=== PATIENT | female | born 1950 | race Two or more races ===

== ENCOUNTER 2016-12-25 14:31 | Emergency (ER) | payer OTHER ==
[2016-12-25 14:42] VITALS: TEMP 99.1; BMI 33.2
--- NOTE | 2016-12-25 14:53 | PDOC ---
[id number] I have performed the following: I have examined & evaluated the patient, The case was reviewed & discussed with the resident, I agree w/resident's findings & plan, Exceptions are as noted - HPI HPI: 66 yo F history HTN, arthritis, sent by dentist after she was found to have elevated BP. She describes sensation of "lumps" in her head. No TREJO, cp, SOB. No recent illness. She is compliant with her medication- takes two blood pressure medications every evening. She sees her PMD every 3 months, has an appointment scheduled later this month. - Physicial Exam PE: GENERAL: Awake, alert, and fully oriented, in no acute distress HEAD: No signs of trauma EYES: PERRLA, EOMI, sclera anicteric, conjunctiva clear ENT: Auricles normal inspection, hearing grossly normal, nares patent, oropharynx clear without exudates. Moist mucosa NECK: Normal ROM, supple, no lymphadenopathy, JVD, or masses LUNGS: Breath sounds equal, clear to auscultation bilaterally. No wheezes, and no crackles HEART: Regular rate and rhythm, normal S1 and S2, no murmurs, rubs or gallops ABDOMEN: Soft, nontender, normoactive bowel sounds. No guarding, no rebound. No masses EXTREMITIES: Normal range of motion, no edema. No clubbing or cyanosis. No cords, erythema, or tenderness NEUROLOGICAL: Cranial nerves II through XII grossly intact. Normal speech, normal gait SKIN: Warm, Dry, normal turgor, no rashes or lesions noted. - Medical Decision Making Patient is well-appearing, neurologically intact. Asymptomatic HTN. No signs of end-organ damage. EKG no acute findings. Awaiting labs. If wnl, will DC with outpatient PMD follow-up. Will add a calcium channel nirmal to her regimen.
--- NOTE | 2016-12-25 16:09 | PDOC ---
History of Present Illness - General Chief Complaint: Blood Pressure Problem Stated Complaint: HTN CRISIS Time Seen by Provider: 12/25/16 14:48 History Source: Patient Exam Limitations: Language Barrier - History of Present Illness Initial Comments: 12/25/16 16:01 The pt is 66 year old female with a PMH of HTN, arthritis, who was referred to the hospital from the dentist office where she was found to have elevated systolic BP around 220s/75. She is complaining of feeling "Lumps" in her head, different locations but denies headache, vision problems. She had POLICE GUARD laparoscopic surgery in September. Since then she has been complaining of dyspnea with exertion. She is also complaining of cough and urgency, incontinence. The pt denies dysuria, fever, chills. Denies chest pain, palpitations, dizziness. Timing/Duration: 4-6 hours Severity: moderate Past History - Past Medical History Allergies/Adverse Reactions: Allergies Allergy/AdvReac Type Severity Reaction Status Date / Time No Known Allergies Allergy Verified 12/25/16 14:40 Home Medications: Ambulatory Orders Atenolol [Tenormin -] 100 mg PO DAILY 12/07/13 Amlodipine Besylate [Norvasc -] 5 mg PO DAILY #30 tablet 12/25/16 Lisinopril [Zestril] 20 mg PO DAILY 12/25/16 Meloxicam [Mobic] 15 mg PO DAILY 12/25/16 Trazodone HCl [Desyrel -] 50 mg PO HS 12/25/16 Diabetes: Yes GI Disorders: Yes (ACID REFLUX) HTN: Yes - Surgical History Abdominal Surgery: Yes Appendectomy: Yes - Psycho/Social/Smoking Cessation Hx Suicidal Ideation: No Smoking History: Never smoked Have you smoked in the past 12 months: No Information on smoking cessation initiated: No Hx Alcohol Use: No Drug/Substance Use Hx: No Review of Systems - Review of Systems Able to Perform ROS?: Yes Comments:: 12/25/16 16:39 REVIEW OF SYSTEMS CONSTITUTIONAL: Absent: fever, chills, diaphoresis, generalized weakness, HEENT: Absent: rhinorrhea, nasal congestion, throat pain, throat swelling, difficulty swallowing, mouth swelling, ear pain, eye pain, visual changes CARDIOVASCULAR: Absent: chest pain, syncope, palpitations, irregular heart rate, lightheadedness , peripheral edema RESPIRATORY: cough Absent: shortness of breath, dyspnea with exertion, orthopnea, wheezing, stridor, hemoptysis GASTROINTESTINAL: Absent: abdominal pain, abdominal distension, nausea, vomiting, diarrhea, constipation, melena, hematochezia GENITOURINARY: Absent: dysuria, frequency, urgency, hesitancy, hematuria, flank pain, genital pain MUSCULOSKELETAL: arthralgia in knee b/l Absent: myalgia, arthralgia, joint swelling, back pain, neck pain SKIN: Absent: rash, itching, pallor NEUROLOGIC: bladder incontinence Absent: headache, focal weakness or paresthesias, dizziness, unsteady gait, seizure, mental status changes, Is the patient limited Ukrainian proficient: Yes *Physical Exam - Vital Signs Last Vital Signs Temp Pulse Resp BP Pulse Ox 99.1 F 67 20 227/76 98 12/25/16 14:40 12/25/16 14:40 12/25/16 14:40 12/25/16 14:40 12/25/16 14:40 - Physical Exam Comments: 12/25/16 16:23 GENERAL: The patient is awake, alert, and fully oriented, in no acute distress. HEAD: Normal with no signs of trauma. EYES: PERRL, extraocular movements intact, sclera anicteric, conjunctiva clear. No ptosis. ENT: Ears normal, nares patent, oropharynx clear without exudates, moist mucous membranes. NECK: Trachea midline, full range of motion, supple. LUNGS: Breath sounds equal, clear to auscultation bilaterally, no wheezes, no crackles, no accessory muscle use. HEART: Regular rate and rhythm, S1, S2 without murmur, rub or gallop. ABDOMEN: Obese, soft, nontender, nondistended, normoactive bowel sounds, no guarding, no rebound. EXTREMITIES: 2+ pulses, warm, well-perfused, no edema. NEUROLOGICAL: Normal speech, gait not observed. PSYCH: Normal mood, normal affect. SKIN: Warm, dry, normal turgor, no rashes or lesions noted ED Treatment Course - LABORATORY CBC & Chemistry Diagram: 12/25/16 15:30 12/25/16 15:30 Medical Decision Making - Medical Decision Making 12/25/16 16:41 THe pt has elevated systolic BP. She takes her medications everyday. She has been recently under a lot of stress. We ordered CMP, CBC, UA which are pending. We did EKG-no acute changes, NSR. We tried to contact PCP Dr. Anna Lorenzana [phone] and [phone]. Norvasc 5 mg ONCE was ordered. 12/25/16 18:02 The pt is ready for discharge. BP went down to 189/75. She was told to take Norvasc 5 mg daily. Her labs were nl, troonin negative. *DC/Admit/Observation/Transfer Diagnosis at time of Disposition: Hypertension Qualifiers: Hypertension type: essential hypertension Qualified Code(s): I10 - Essential ( primary) hypertension - Discharge Dispostion Disposition: HOME Condition at time of disposition: Stable Admit: No - Prescriptions Prescriptions: Amlodipine Besylate [Norvasc -] 5 mg PO DAILY #30 tablet - Patient Instructions Printed Discharge Instructions: DI for High Blood Pressure, How to Monitor Your Blood Pressure at Home Additional Instructions: Please take your blood pressure medication Norvasc 5 mg everyday. Continue taking all your medications as you were taking before coming to the hospital. Call and let him know that you were in the hospital with elevated blood pressure. Please see him on Wednesday. Your new medication is waiting for you in your pharmacy [facility]. Please monitor blood pressure at home. If your symptoms worsen come back to Emergency Room as soon as possible.
[2016-12-25] MEDS ORDERED: amLODIPine BESYLATE 5 MG TABLET (FP) PO ONE (16:32)
[2016-12-25 16:42] LABS: BASOPHIL 0.6 % (0-2.0); EOSINOPHIL 1.2 % (0-4.5); MCH 29.6 pg (25.7-33.7); MEAN PLT VOLUME 8.7 fl (7.5-11.1); NEUTROPHILS 63.9 % (42.8-82.8); PLATELET COUNT 295 K/MM3 (134-434); RDW 13.2 % (11.6-15.6); WHITE BLOOD COUNT 8.2 K/mm3 (4.0-10.0)
[2016-12-25] MEDS ORDERED: amLODIPine BESYLATE 5 MG TABLET (FP) ONE (16:44)
[2016-12-25 17:21] LABS: TROPONIN I < 0.02 ng/ml (0.00-0.05)
[2016-12-25 17:25] LABS: ALBUMIN 3.6 g/dl (3.4-5.0); ANION GAP 11 (8-16); CALCIUM 8.8 mg/dL (8.5-10.1); CO2 25 mmol/L (21-32); CREATININE 0.7 mg/dL (0.55-1.02); GLUCOSE,RANDOM 103 mg/dL (74-106); SGOT/AST 31 U/L (15-37); SGPT/ALT 37 U/L (12-78)
[2016-12-25 17:27] LABS: ALK PHOS 113 U/L (45-117); BILIRUBIN,TOTAL 0.3 mg/dL (0.2-1.0); TOT PROT 7.7 g/dl (6.4-8.2)
[2016-12-25] MEDS ORDERED: amLODIPine BESYLATE 2.5 MG TABLET (FP) PO ONE (18:32)
[2016-12-25] MEDS ORDERED: LISINOPRIL 20 MG TABLET (FP) PO ONE (18:34)
[2016-12-25] MEDS ORDERED: ATENOLOL 50 MG TABLET (FP) PO ONE (18:34)
[2016-12-25] MEDS ORDERED: LISINOPRIL 20 MG TABLET (FP) ONE (18:35)
[2016-12-25] MEDS ORDERED: ATENOLOL 25 MG TABLET (FP) ONE (18:35)
[2016-12-25] MEDS ORDERED: CEFTRIAXONE 50 ML ONE (18:46)
[2016-12-25] MEDS ORDERED: PHENAZOPYRIDINE HCL 100 MG TABLET (FP) ONE (18:46)
[2016-12-25 19:13] VITALS: BP 181/90; PULSE 78
--- NOTE | 2016-12-26 14:47 | EKG ---
Test Reason : Blood Pressure : / mmHG Vent. Rate : 066 BPM Atrial Rate : 066 BPM P-R Int : 158 ms QRS Dur : 086 ms QT Int : 416 ms P-R-T Axes : 037 -09 037 degrees QTc Int : 436 ms NORMAL SINUS RHYTHM MODERATE VOLTAGE CRITERIA FOR LVH, MAY BE NORMAL VARIANT WHEN COMPARED WITH ECG OF 07-DEC-2013 21:53, NO SIGNIFICANT CHANGE WAS FOUND Confirmed by ERYN HURD MD ([id number]) on 12/26/2016 2:47:40 PM Referred By: Confirmed By:ERYN HURD MD
== END 2016-12-25 19:13 | disposition home or self-care (01) ==
LOC: JER 14:31
DX: I10 Essential (primary) hypertension (principal); E11.9 Type 2 diabetes mellitus without complications; K21.9 Gastro-esophageal reflux disease without esophagitis; M12.9 Arthropathy, unspecified
CPT/HCPCS: 36415; 80053; 82550; 84484; 85025; 93005; 93010; 99284-25

== ENCOUNTER 2017-04-09 12:13 | Day surgery (SDC) | payer OTHER ==
[2017-04-08 10:57] VITALS: BMI 33.2
[2017-04-09] MEDS ORDERED: ONABOTULINUMTOXINA 200 UNIT/VIAL VIAL IM ONE ×2 (13:30→16:06)
[2017-04-09] MEDS ORDERED: MIDAZOLAM HCL 2 MG/2 ML SINGLE DOSE VIAL ONE (15:15)
--- NOTE | 2017-04-09 15:18 | OP ---
Operative Note - Note: Operative Date: 04/09/17 Pre-Operative Diagnosis: overactive bladder Operation: cysto botox injection in bladder Findings: small caps. bladder Post-Operative Diagnosis: Same as Pre-op Surgeon: Casimiro Stanton Anesthesia: General Specimens Removed: urine Estimated Blood Loss (mls): 0 Drains & Tubes with Location: none Drains, Volume Out (mls): 0 Blood Volume Replaced (mls): 0 Fluid Volume Replaced (mls): 0 Operative Report Dictated: Yes
--- NOTE | 2017-04-09 15:38 | HP ---
DATE OF ADMISSION: 04/09/2017 HISTORY OF PRESENT ILLNESS: This is a 66-year-old female with a history of overactive bladder, including urgency, frequency, hesitancy, stress urinary incontinence and enuresis. The patient is on multiple medications without any relief. She has tried Kegel exercises but again with no relief. A urodynamic evaluation revealed an overactive bladder. PAST MEDICAL HISTORY: The patient has a history of diet-controlled diabetes. She is also hypertensive. She has a history of rheumatoid arthritis. The patient is a G5, P5 and is post-menopausal. PAST SURGICAL HISTORY: She has undergone bilateral tubal ligation as well as an appendectomy. SOCIAL HISTORY: She denies ethanol or tobacco use. ALLERGIES: She denies any allergies. PHYSICAL EXAMINATION: General: She is a well-developed adult female in no apparent distress. Abdomen: Globose and soft. No CVA tenderness. No suprapubic tenderness is noted. Extremities: Full range of motion with no cyanosis, clubbing or edema. DIAGNOSTIC DATA: Her Tyrell test is positive for stress urinary incontinence. MEDICATIONS: She is presently on Tenormin 100 mg daily, Zestril 10 mg daily, Mobic 15 mg daily, trazodone 50 mg nightly, aspirin, calcium and hydrochlorothiazide. PLAN: She is to undergo a cystourethroscopy with Botox injections. The procedure was explained in detail to the patient and she agrees. GAURAV MANRIQUEZ M.D. [id number]
[2017-04-09] MEDS ORDERED: ceFAZolin SODIUM 1 GM VIAL IVPB ONE (15:54)
[2017-04-09] MEDS ORDERED: ONDANSETRON 4 MG/2 ML VIAL IVPUSH PRN (16:30)
[2017-04-09] MEDS ORDERED: LACTATED RINGERS SOLUTION 1,000 ML IV SCH (16:30)
[2017-04-09 17:52] VITALS: BP 156/73; PULSE 64
[2017-04-09 18:39] VITALS: TEMP 97.9
== END 2017-04-09 17:51 | disposition home or self-care (01) ==
LOC: JASU-SURG 12:13
PROVIDERS: ATTEND Urology
PROC: 3E0K8GC Introduction of Other Therapeutic Substance into Genitourinary Tract, Via Natural or Artificial Opening Endoscopic (ICD-10-PCS; principal; 2017-04-09 13:30)
DX: N32.81 Overactive bladder (principal)
CPT/HCPCS: 52287; J0585; 94760

== ENCOUNTER 2018-09-27 08:46 | Day surgery (SDC) | payer MEDICARE, OTHER ==
[2018-09-26 12:50] VITALS: BMI 31.4
[2018-09-27] MEDS ORDERED: ceFAZolin SODIUM 1 GM VIAL IVPB ONE (09:46)
[2018-09-27] MEDS ORDERED: MIDAZOLAM HCL 2 MG/2 ML SINGLE DOSE VIAL ONE (10:30)
[2018-09-27] MEDS ORDERED: ceFAZolin SODIUM 1 GM VIAL ONE (10:30)
[2018-09-27] MEDS ORDERED: LIDOCAINE HCL/PF 2% SDV 5ML VIAL ONE (10:30)
[2018-09-27] MEDS ORDERED: DEXAMETHASONE SOD PHOSPHATE 4 MG/1 ML VIAL ONE (10:38)
[2018-09-27] MEDS ORDERED: PROPOFOL 20 ML ONE (10:42)
[2018-09-27] MEDS ORDERED: ONABOTULINUMTOXINA 200 UNIT/VIAL VIAL IM ONE (10:45)
[2018-09-27] MEDS ORDERED: ACETAMINOPHEN 325 MG TABLET (FP) PO PRN (10:47)
--- NOTE | 2018-09-27 10:51 | OP ---
Operative Note - Note: Operative Date: 09/27/18 Pre-Operative Diagnosis: oab Operation: cysto., dil., botox bladder injection Findings: uretheral stricture, grade 1 trabeculation and bladder hyperemia Prune Washer: Casimrio Stanton Anesthesia: General Specimens Removed: urine Estimated Blood Loss (mls): 0 Drains, Volume Out (mls): 0 Blood Volume Replaced (mls): 0 Fluid Volume Replaced (mls): 0 Operative Report Dictated: Yes
[2018-09-27] MEDS ORDERED: ONDANSETRON 4 MG/2 ML VIAL IVPUSH PRN (11:16)
[2018-09-27] MEDS ORDERED: oxyCODONE HCL 5 MG TABLET PO PRN (11:16)
--- NOTE | 2018-09-27 11:24 | HP ---
DATE OF ADMISSION: DATE OF DICTATION: 09/27/2018 HISTORY OF PRESENT ILLNESS: Patient is a 68-year-old female with history of overactive bladder and stress urinary incontinence. She was on multiple anticholinergics, including Myrbetriq, Toviaz and Ditropan without help. Keleg exercises were also unsuccessful. PAST MEDICAL HISTORY: The patient does have history of high blood pressure and diabetes. She also has gastroesophageal reflux disease. PAST SURGICAL HISTORY: She has undergone an appendectomy. The patient is G3, P5. MEDICATIONS: Presently she is on lisinopril and Atenolol. PHYSICAL EXAMINATION: Genitourinary: She denies any dysuria or hematuria. Abdomen: Her abdomen is soft. There is no CVA tenderness. Pelvic: Revealed atrophic vaginitis with a positive Tyrell test. Her post void residual was 87 mL. BUN was 12, creatinine 0.8. Extremities: Revealed full range of motion with no cyanosis, clubbing or edema. IMPRESSION: At present is overactive bladder. PLAN: Cystourethroscopy with Botox injection. Procedure explained fully to patient and she agrees. Marcos [id number]
[2018-09-27] MEDS ORDERED: LACTATED RINGERS SOLUTION 1,000 ML IV SCH (11:30)
[2018-09-27 14:42] VITALS: BP 138/65; PULSE 70; TEMP 97.3
[2018-09-27] MEDS ORDERED: ASPIRIN 81 MG CHEWABLE TABLETS PO SCH (22:00)
[2018-09-28] MEDS ORDERED: ATENOLOL 50 MG TABLET (FP) PO SCH (10:00)
--- NOTE | 2018-11-02 19:52 | OP ---
DATE OF OPERATION: 09/27/2018 PREOPERATIVE DIAGNOSIS: Overactive bladder, recurrent urinary tract infection. POSTOPERATIVE DIAGNOSIS: Overactive bladder, recurrent urinary tract infection. OPERATIVE PROCEDURE: Cystourethroscopy, urethral dilation and Botox inject in the bladder. ANESTHESIA: General. DESCRIPTION OF PROCEDURE: Under above stated anesthesia, patient is prepped and draped in the usual sterile manner. She is placed in the dorsal lithotomy position. Cystoscopy revealed a tight urethral orifice, therefore the urethra was dilated with Randall sounds to 30 Mongolian without difficulty or bleeding. No lesions were seen in the bladder. The bladder capacity appeared to be small. Ureteral orifices were within normal limits. Therefore 100 units of Botox was mixed with 20 mL of normal saline. A row of five 1-mL injections was placed 1 cm above the interureteric ridge commencing from the extreme right and then at the extreme left side of the bladder. A second row was placed above that 1 cm in distance. A third row and a fourth row of 5 injections. In total the patient received 20 mL of the mixture of 100 units of Botox and 20 mL of normal saline. No active bleeding was noted. The bladder was emptied. The scope was removed. The patient tolerated the procedure well. She returned to the recovery room in good condition. Marcos [id number]
== END 2018-09-27 13:10 | disposition home or self-care (01) ==
LOC: JASU-SURG 08:46
PROVIDERS: ATTEND Urology
PROC: 3E0K8GC Introduction of Other Therapeutic Substance into Genitourinary Tract, Via Natural or Artificial Opening Endoscopic (ICD-10-PCS; principal; 2018-09-27 10:00)
DX: N32.81 Overactive bladder (principal); N39.0 Urinary tract infection, site not specified
CPT/HCPCS: 82962; 87086; 94760; J0585

== ENCOUNTER 2022-11-10 16:29 | Observation (INO) | payer MEDICARE, OTHER ==
[2022-11-10 18:54] LABS: BASO % 0.8 % (0-2.0); EOS % 1.4 % (0-4.5); HEMATOCRIT 38.7 % (32.4-45.2); HEMOGLOBIN 12.9 GM/dL (10.7-15.3); MCH 29.2 pg (25.7-33.7); MCHC 33.4 g/dl (32.0-36.0); MEAN CELL VOLUME 87.2 fl (80-96); MEAN PLT VOLUME 8.9 fl (7.5-11.1); MONO % 7.2 % (3.8-10.2); NEUT % 64.6 % (42.8-82.8); PLATELET COUNT 249 10^3/uL (134-434); RBC 4.44 M/mm3 (3.60-5.2); RDW 12.6 % (11.6-15.6); WHITE BLOOD COUNT 7.8 K/mm3 (4.0-10.0)
[2022-11-10 19:16] LABS: CALCIUM 9.8 mg/dL (8.5-10.1)
[2022-11-10 19:17] LABS: ALBUMIN 3.1 g/dl (3.4-5.0); BLOOD UREA NITROGEN 28.6 mg/dL (7-18)
[2022-11-10 19:19] LABS: PHOSPHOROUS 5.2 mg/dL (2.5-4.9)
[2022-11-10 19:20] LABS: CREATININE 1.2 mg/dL (0.55-1.3)
[2022-11-10 19:21] LABS: BILIRUBIN,TOTAL 0.3 mg/dL (0.2-1); TOT PROT 7.6 g/dl (6.4-8.2)
[2022-11-10 19:48] LABS: EPI CELLS 3 /uL (0-25.1); HYALINE CASTS 0 /uL (0-3.1); URINE APPEARANCE CLEAR; URINE BACTERIA 2 /uL (0-1359); URINE BILIRUBIN NEGATIVE (NEGATIVE); URINE COLOR YELLOW; URINE GLUCOSE (UA) NEGATIVE (NEGATIVE); URINE KETONE NEGATIVE (NEGATIVE); URINE LEUK ESTERASE NEGATIVE (NEGATIVE); URINE NITRITE NEGATIVE (NEGATIVE); URINE PROTEIN NEGATIVE (NEGATIVE); URINE RBC 12 /uL (0-23.9); URINE UROBILINOGEN 0.2 mg/dL (0.2-1.0); URINE WBC 4 /uL (0-25.8)
[2022-11-10] MEDS ORDERED: MECLIZINE HCL 25 MG TABLET (FP) PO ONE (21:23)
[2022-11-10] MEDS ORDERED: MECLIZINE HCL 25 MG TABLET (FP) ONE (21:40)
[2022-11-10] MEDS ORDERED: SODIUM CHLORIDE 0.9% 500 ML INFUS.BAG IV ONE (22:08)
[2022-11-11] MEDS: SODIUM CHLORIDE 1,000 ML IV SCH (05:44)
[2022-11-11] MEDS ORDERED: CALCIUM CARBONATE 500 MG PO SCH (06:15)
[2022-11-11] MEDS ORDERED: sitaGLIPtin PHOSPHATE 50 MG TABLET ONE (07:49)
[2022-11-11] MEDS: INSULIN SLIDING SCALE (NOVOLOG) 1 VIAL SQ SCH ×4 (07:55→23:46)
[2022-11-11] MEDS ORDERED: PANTOPRAZOLE 40 MG TABLET PO ONE (09:09)
[2022-11-11] MEDS ORDERED: ENOXAPARIN NA (PORCINE) 40 MG/0.4 ML DISP.SYRIN SQ ONE (09:09)
[2022-11-11] MEDS ORDERED: LISINOPRIL 10 MG TABLET ONE (09:09)
[2022-11-11] MEDS: PANTOPRAZOLE 40 MG TABLET PO SCH (09:14)
[2022-11-11] MEDS: LISINOPRIL 10 MG TABLET PO SCH (09:14)
[2022-11-11] MEDS: ENOXAPARIN NA (PORCINE) 40 MG/0.4 ML DISP.SYRIN SQ SCH (09:14)
[2022-11-11 14:30] LABS: HEMATOCRIT 36.7 % (32.4-45.2); HEMOGLOBIN 12.2 GM/dL (10.7-15.3); MCH 29.3 pg (25.7-33.7); MCHC 33.2 g/dl (32.0-36.0); MEAN CELL VOLUME 88.2 fl (80-96); MEAN PLT VOLUME 8.6 fl (7.5-11.1); PLATELET COUNT 231 10^3/uL (134-434); RBC 4.16 M/mm3 (3.60-5.2); RDW 12.7 % (11.6-15.6); WHITE BLOOD COUNT 6.4 K/mm3 (4.0-10.0)
[2022-11-11 15:09] LABS: CALCIUM 8.7 mg/dL (8.5-10.1)
[2022-11-11 15:10] LABS: ALBUMIN 2.7 g/dl (3.4-5.0); MAGNESIUM 1.6 mg/dL (1.8-2.4)
[2022-11-11 15:13] LABS: CREATININE 1.3 mg/dL (0.55-1.3); PHOSPHOROUS 3.6 mg/dL (2.5-4.9)
[2022-11-11 15:14] LABS: BILIRUBIN,TOTAL 0.3 mg/dL (0.2-1); TOT PROT 6.5 g/dl (6.4-8.2)
[2022-11-11 18:55] VITALS: RESP 18; BMI 27.9
[2022-11-12] MEDS: SODIUM CHLORIDE 1,000 ML IV SCH ×3 (06:00→17:14)
[2022-11-12] MEDS: INSULIN (LEVEMIR) 100 UNITS/ML UNITS SQ SCH (06:42)
[2022-11-12] MEDS: INSULIN SLIDING SCALE (NOVOLOG) 1 VIAL SQ SCH ×4 (06:43→21:46)
[2022-11-12] MEDS: LISINOPRIL 10 MG TABLET PO SCH (09:11)
[2022-11-12] MEDS: ENOXAPARIN NA (PORCINE) 40 MG/0.4 ML DISP.SYRIN SQ SCH (09:11)
[2022-11-12] MEDS: ATENOLOL 25 MG TABLET (FP) PO SCH (09:11)
[2022-11-12] MEDS: PANTOPRAZOLE 40 MG TABLET PO SCH (09:11)
[2022-11-12 09:50] LABS: HEMATOCRIT 36.4 % (32.4-45.2); HEMOGLOBIN 12.1 GM/dL (10.7-15.3); MCH 29.5 pg (25.7-33.7); MCHC 33.3 g/dl (32.0-36.0); MEAN CELL VOLUME 88.6 fl (80-96); MEAN PLT VOLUME 9.2 fl (7.5-11.1); PLATELET COUNT 230 10^3/uL (134-434); RBC 4.11 M/mm3 (3.60-5.2); RDW 12.6 % (11.6-15.6); WHITE BLOOD COUNT 6.5 K/mm3 (4.0-10.0)
[2022-11-12 10:20] LABS: CALCIUM 8.5 mg/dL (8.5-10.1); MAGNESIUM 1.5 mg/dL (1.8-2.4)
[2022-11-12 10:21] LABS: ALBUMIN 2.8 g/dl (3.4-5.0)
[2022-11-12 10:24] LABS: CREATININE 0.9 mg/dL (0.55-1.3)
[2022-11-12 10:25] LABS: TOT PROT 6.7 g/dl (6.4-8.2)
[2022-11-12 10:26] LABS: BILIRUBIN,TOTAL 0.7 mg/dL (0.2-1); PHOSPHOROUS 3.3 mg/dL (2.5-4.9)
[2022-11-12] MEDS ORDERED: MAGNESIUM SULF 50% (8.12 MEQ/2 ML-1 GM VIAL) IVPB ONE (13:22)
[2022-11-12] MEDS: OMEGA-3 ACID ETHYL ESTERS (FATTY-ACIDS) 1 GM CAPSULE (FP) PO SCH (21:41)
[2022-11-13] MEDS: SODIUM CHLORIDE 1,000 ML IV SCH (06:44)
[2022-11-13] MEDS: INSULIN SLIDING SCALE (NOVOLOG) 1 VIAL SQ SCH ×2 (06:45→11:42)
[2022-11-13] MEDS: INSULIN (LEVEMIR) 100 UNITS/ML UNITS SQ SCH (06:46)
[2022-11-13] MEDS ORDERED: INSULIN (LEVEMIR) 100 UNITS/ML UNITS SQ SCH ×2 (07:38→07:39)
[2022-11-13 08:45] LABS: HEMATOCRIT 35.3 % (32.4-45.2); HEMOGLOBIN 11.9 GM/dL (10.7-15.3); MCHC 33.7 g/dl (32.0-36.0); MEAN CELL VOLUME 89.1 fl (80-96); MEAN PLT VOLUME 9.3 fl (7.5-11.1); PLATELET COUNT 211 10^3/uL (134-434); RBC 3.96 M/mm3 (3.60-5.2); RDW 12.7 % (11.6-15.6); WHITE BLOOD COUNT 6.2 K/mm3 (4.0-10.0)
[2022-11-13 08:57] LABS: ALBUMIN 2.8 g/dl (3.4-5.0); CALCIUM 8.3 mg/dL (8.5-10.1)
[2022-11-13 08:58] LABS: BLOOD UREA NITROGEN 12.4 mg/dL (7-18); MAGNESIUM 1.8 mg/dL (1.8-2.4)
[2022-11-13 08:59] LABS: CREATININE 0.9 mg/dL (0.55-1.3); PHOSPHOROUS 2.8 mg/dL (2.5-4.9)
[2022-11-13 09:01] LABS: BILIRUBIN,TOTAL 0.5 mg/dL (0.2-1); TOT PROT 6.5 g/dl (6.4-8.2)
[2022-11-13] MEDS: ATENOLOL 25 MG TABLET (FP) PO SCH (10:12)
[2022-11-13] MEDS: OMEGA-3 ACID ETHYL ESTERS (FATTY-ACIDS) 1 GM CAPSULE (FP) PO SCH (10:12)
[2022-11-13] MEDS: PANTOPRAZOLE 40 MG TABLET PO SCH (10:13)
[2022-11-13] MEDS: ENOXAPARIN NA (PORCINE) 40 MG/0.4 ML DISP.SYRIN SQ SCH (10:13)
[2022-11-13] MEDS: LISINOPRIL 10 MG TABLET PO SCH (10:13)
[2022-11-13] MEDS ORDERED: INSULIN (LEVEMIR) 100 UNITS/ML UNITS SQ ONE (11:00)
[2022-11-13 15:32] VITALS: BP 130/70; PULSE 60; TEMP 98
== END 2022-11-13 16:03 | disposition home or self-care (01) ==
LOC: JER 16:29 → JERBED 11-11 01:55 → UNDOADMOB 11-11 01:55 → INTOOBSV 11-11 05:31 → OBSVTOIN 11-11 05:31 → JERBED 11-11 13:53 → J4W 11-11 18:26
PROVIDERS: ADMIT Internal Medicine; ATTEND Internal Medicine
PROC: 3E023GC Introduction of Other Therapeutic Substance into Muscle, Percutaneous Approach (ICD-10-PCS; principal; 2022-11-11)
PROC: 3E013VG Introduction of Insulin into Subcutaneous Tissue, Percutaneous Approach (ICD-10-PCS; 2022-11-11)
PROC: 3E033GC Introduction of Other Therapeutic Substance into Peripheral Vein, Percutaneous Approach (ICD-10-PCS; 2022-11-11)
PROC: 3E0337Z Introduction of Electrolytic and Water Balance Substance into Peripheral Vein, Percutaneous Approach (ICD-10-PCS; 2022-11-11)
DX: I10 Essential (primary) hypertension (principal); E11.9 Type 2 diabetes mellitus without complications; K21.9 Gastro-esophageal reflux disease without esophagitis; E86.0 Dehydration; R74.01 Elevation of levels of liver transaminase levels
CPT/HCPCS: 0241U-QW; 36415; 70450-TC; 71045-TC-FY; 76705-TC; 80053; 80061; 81003; 82962; 83036; 83735; 84100; 84439; 84443; 84484; 85025; 85027; 87086; 87186; 93005; 93010; 96372; 96374; 97116-GP; 97162-GP; 99285-25; G0378

== ENCOUNTER 2023-03-29 23:12 | Observation (INO) | payer MEDICARE, OTHER ==
[2023-03-29] MEDS ORDERED: ACETAMINOPHEN 1000 MG/100 ML BAG IVPB ONE (23:47)
[2023-03-29] MEDS ORDERED: morphine CARPU-JECT 2 MG/1 ML DISP.SYRIN IVPUSH ONE (23:47)
[2023-03-29] MEDS ORDERED: LIDOCAINE HCL 1%, 10 MG/ML (50 mL VIAL) INF ONE (23:48)
[2023-03-29] MEDS ORDERED: LIDOCAINE HCL/PF 1% SDV 5ML VIAL ONE (23:49)
[2023-03-29] MEDS ORDERED: LIDOCAINE HCL 1%, 10 MG/ML (10ML VIAL) MDV ONE (23:49)
[2023-03-29] MEDS ORDERED: ACETAMINOPHEN INJECTION 100 ML IVPB ONE (23:57)
[2023-03-30] MEDS ORDERED: ONDANSETRON 4 MG/2 ML VIAL ONE ×2 (00:09→03:17)
[2023-03-30 00:19] LABS: BASO % 0.4 % (0-2.0); EOS % 0.2 % (0-4.5); HEMATOCRIT 40.6 % (32.4-45.2); HEMOGLOBIN 13.6 GM/dL (10.7-15.3); LYMPH % 12.1 % (8-40); MCH 28.4 pg (25.7-33.7); MCHC 33.4 g/dl (32.0-36.0); MEAN CELL VOLUME 84.9 fl (80-96); MEAN PLT VOLUME 7.8 fl (7.5-11.1); MONO % 4.9 % (3.8-10.2); NEUT % 82.4 % (42.8-82.8); PLATELET COUNT 309 10^3/uL (134-434); RBC 4.78 M/mm3 (3.60-5.2); RDW 13.3 % (11.6-15.6); WHITE BLOOD COUNT 13.6 K/mm3 (4.0-10.0)
[2023-03-30 00:27] LABS: INR 1.1 (0.83-1.09); PROTHROMBIN TIME (PATIENT) 12.8 SEC (9.7-13.0)
[2023-03-30 00:30] LABS: ACTIVATED PTT 25.7 SECONDS (25.2-36.5)
[2023-03-30 00:39] LABS: POTASSIUM 3.9 mmol/L (3.5-5.1)
[2023-03-30 00:42] LABS: ALBUMIN 3.5 g/dl (3.4-5.0); BLOOD UREA NITROGEN 17.9 mg/dL (7-18)
[2023-03-30 00:45] LABS: CREATININE 1.1 mg/dL (0.55-1.3)
[2023-03-30 00:46] LABS: BILIRUBIN,TOTAL 0.4 mg/dL (0.2-1); TOT PROT 8.1 g/dl (6.4-8.2)
[2023-03-30] MEDS ORDERED: PROPOFOL 1,000,000 MCG/100 ML VIAL ONE (02:49)
[2023-03-30] MEDS ORDERED: HYDROmorphone HCl 2 MG/ML VIAL ONE (03:17)
[2023-03-30] MEDS ORDERED: ATENOLOL 25 MG TABLET (FP) PO SCH (13:15)
[2023-03-30] MEDS: ENOXAPARIN NA (PORCINE) 40 MG/0.4 ML DISP.SYRIN SQ SCH (13:19)
[2023-03-30] MEDS: PANTOPRAZOLE 40 MG TABLET PO SCH (13:19)
[2023-03-30] MEDS: ACETAMINOPHEN 1000 MG/100 ML BAG IVPB PRN ×2 (13:21→22:40)
[2023-03-30 15:02] VITALS: BMI 31.8
[2023-03-30] MEDS: INSULIN SLIDING SCALE (NOVOLOG) 1 VIAL SQ SCH ×2 (16:53→22:48)
[2023-03-31] MEDS: INSULIN SLIDING SCALE (NOVOLOG) 1 VIAL SQ SCH ×4 (06:32→23:06)
[2023-03-31 07:47] LABS: BASO % 0.8 % (0-2.0); EOS % 2.1 % (0-4.5); HEMATOCRIT 38.7 % (32.4-45.2); HEMOGLOBIN 12.7 GM/dL (10.7-15.3); LYMPH % 36.3 % (8-40); MCH 28.5 pg (25.7-33.7); MCHC 32.9 g/dl (32.0-36.0); MEAN CELL VOLUME 86.7 fl (80-96); MEAN PLT VOLUME 8.2 fl (7.5-11.1); NEUT % 52.8 % (42.8-82.8); PLATELET COUNT 255 10^3/uL (134-434); RBC 4.47 M/mm3 (3.60-5.2); WHITE BLOOD COUNT 5.9 K/mm3 (4.0-10.0)
[2023-03-31 07:56] LABS: POTASSIUM 4.2 mmol/L (3.5-5.1)
[2023-03-31 08:00] LABS: BLOOD UREA NITROGEN 13.8 mg/dL (7-18); CALCIUM 8.7 mg/dL (8.5-10.1)
[2023-03-31 08:05] LABS: BILIRUBIN,TOTAL 0.5 mg/dL (0.2-1); TOT PROT 6.7 g/dl (6.4-8.2)
[2023-03-31 08:36] LABS: ALBUMIN 2.8 g/dl (3.4-5.0)
[2023-03-31] MEDS: ATENOLOL 50 MG TABLET (FP) PO SCH (10:28)
[2023-03-31] MEDS: ENOXAPARIN NA (PORCINE) 40 MG/0.4 ML DISP.SYRIN SQ SCH (10:28)
[2023-03-31] MEDS: PANTOPRAZOLE 40 MG TABLET PO SCH (10:29)
[2023-03-31] MEDS: amLODIPine BESYLATE 10 MG TABLET (FP) PO SCH (10:29)
[2023-03-31] MEDS: ACETAMINOPHEN 1000 MG/100 ML BAG IVPB PRN (10:34)
[2023-04-01] MEDS ORDERED: ACETAMINOPHEN 325 MG TABLET (FP) PO PRN (06:32)
[2023-04-01] MEDS: INSULIN SLIDING SCALE (NOVOLOG) 1 VIAL SQ SCH ×2 (06:58→11:31)
[2023-04-01] MEDS: ENOXAPARIN NA (PORCINE) 40 MG/0.4 ML DISP.SYRIN SQ SCH (10:38)
[2023-04-01] MEDS: ATENOLOL 50 MG TABLET (FP) PO SCH (10:39)
[2023-04-01] MEDS: PANTOPRAZOLE 40 MG TABLET PO SCH (10:39)
[2023-04-01] MEDS: amLODIPine BESYLATE 10 MG TABLET (FP) PO SCH (10:39)
[2023-04-01 13:49] VITALS: BP 131/61; PULSE 61; RESP 20; TEMP 98.2
== END 2023-04-01 16:00 | disposition home health service (06) ==
LOC: JER 23:12 → UNDOADMOB 03-30 03:24 → JERBED 03-30 03:24 → J7W 03-30 07:18 → INTOOBSV 03-30 12:27 → OBSVTOIN 03-30 12:27 → J7W 03-31 13:58 → JERBED 03-31 13:58 → J7W 03-31 21:51
PROVIDERS: ADMIT Internal Medicine; ATTEND Internal Medicine
PROC: 3E033NZ Introduction of Analgesics, Hypnotics, Sedatives into Peripheral Vein, Percutaneous Approach (ICD-10-PCS; principal; 2023-03-31)
PROC: 3E023GC Introduction of Other Therapeutic Substance into Muscle, Percutaneous Approach (ICD-10-PCS; 2023-03-31)
PROC: 3E033NZ Introduction of Analgesics, Hypnotics, Sedatives into Peripheral Vein, Percutaneous Approach (ICD-10-PCS; 2023-03-31)
PROC: 0RSKXZZ Reposition Left Shoulder Joint, External Approach (ICD-10-PCS; 2023-03-31)
DX: S43.006A Unspecified dislocation of unspecified shoulder joint, initial encounter (principal); I10 Essential (primary) hypertension; Z76.89 Persons encountering health services in other specified circumstances; Y93.9 Activity, unspecified; W07.XXXA Fall from chair, initial encounter; Y93.89 Activity, other specified; Y92.008 Other place in unspecified non-institutional (private) residence as the place of occurrence of the external cause; F32.A Depression, unspecified; K21.9 Gastro-esophageal reflux disease without esophagitis; E11.00 Type 2 diabetes mellitus with hyperosmolarity without nonketotic hyperglycemic-hyperosmolar coma (NKHHC)
CPT/HCPCS: 23655; 36415; 70450-TC; 71045-TC-FY; 72125-TC; 73030-TC-LT-FY; 73030-TC-RT-FY; 73060-TC-RT-FY; 80053; 82962; 84484; 85025; 85610; 85730; 93005; 93010; 96372; 96374; 96375; 96376; 97116-GP; 97161-GP; 99285-25; G0378